=== PATIENT | male | born 1950 | race African-American/Black ===

== ENCOUNTER 2018-06-14 12:48 | Inpatient (IN) | payer MEDICARE, OTHER, SELFPAY ==
[2018-06-14 13:47] LABS: #Eosinphils 0.2 thou/uL (0.0-0.7); #Monocytes 0.8 thou/uL (0.11-0.59); #Neutrophils 7.4 thou/uL (1.40-6.50); %Basophils 0.2 % (0.0-1.0); %Eosinophils 2.2 % (0.0-10.0); %Lymphocytes 18.9 % (21.0-51.0); %Monocytes 7.3 % (0.0-10.0); %Neutrophils 71.4 % (42.0-75.0); Hemoglobin 14.7 g/dL (14.0-18.0); Mean Corpuscular HGB CONC 33.2 g/dL (32.0-36.0); Mean Corpuscular Hemoglobin 29.1 pg (27.0-31.0); Mean Corpuscular Volume 87.8 fL (78.0-98.0); Mean Platelet Volume 6.8 fL (7.4-10.4); Platelet Count 262 thou/uL (130-400); RBC Distribution Width 12.2 % (11.5-14.5); Red Blood Cell (RBC) Count 5.05 mill/uL (4.70-6.10); White Blood Cell (WBC) Count 10.4 thou/uL (4.8-10.8)
[2018-06-14 14:50] VITALS: BMI 32.1
[2018-06-14] MEDS ORDERED: Dextrose 50% Abboject 50 ML SYRINGE SLOW IVP PRN (14:59)
[2018-06-14] MEDS ORDERED: Guaifenesin DM 100-10/5 ML UDCUP PO PRN (14:59)
[2018-06-14] MEDS ORDERED: Acetaminophen 325 MG TAB PO PRN (14:59)
[2018-06-14] MEDS ORDERED: Dextrose 5% in Water 1,000 ML IV PRN (14:59)
[2018-06-14] MEDS ORDERED: HumaLOG 300 UNITS/3 ML VIAL SC PRN ×2 (14:59)
[2018-06-14] MEDS: glipiZIDE 5 MG TAB PO SCH (15:41)
[2018-06-14] MEDS: Sodium Chloride 0.9% 1,000 ML IV SCH (15:55)
[2018-06-14 16:00] LABS: Hemoglobin 15.1 g/dL (14.0-18.0)
[2018-06-14] MEDS: metFORMIN 850 MG TAB PO SCH (17:46)
--- NOTE | 2018-06-14 20:07 | HP ---
REASON FOR ADMISSION: GI bleed. HISTORY OF PRESENTING ILLNESS: The patient gives history of having 2 episodes of bright red blood pe r rectum this morning. He also had an episode of diarrhea, loose watery stool yesterday evening. He has been having cramping and bloating sensation from yesterday. The patient also mentions that he h as had colonoscopy done 3 weeks ago and had nearly 10 polyps removed of which three were big. His hi stopathology has come back negative for cancer. This was done by Dr. Amanda Zelaya. He has had a st ress test done 2 years back which was negative as far as he knows. He also mentions that from last 2 weeks, his diabetes has been uncontrolled with sugars running up to 270s at home. Currently, he has no complaints of chest pain, palpitation, PND or orthopnea. PAST MEDICAL HISTORY AND PAST SURGICAL HISTORY: Diabetes mellitus type 2, prior history of diverticu litis 15 years ago, dyslipidemia, prostate cancer with prior prostatectomy, recent colonoscopy done 3 weeks back with hyperplastic polyps on histopathology, right forearm surgery, hypertension. CURRENT MEDICATIONS: Patient takes metformin 500 mg p.o. 2 times daily, Trulicity which was recently started by his primary care physician and has taken one dose of it last week, aspirin 325 mg p.o. da dhruv, Zocor 40 mg p.o. daily, vitamin D 3000 units p.o. daily, lisinopril 40 mg p.o. daily. ALLERGIES: No known drug allergies. PERSONAL HISTORY: Does not abuse alcohol or drugs. No history of smoking. FAMILY HISTORY: Mother in her 70s. She has had history of end-stage renal disease, coronary ar brooke disease, and diabetes. Father of COPD and its complications and was a heavy smoker. He di ed at the age of 78 years. CODE STATUS: FULL. Power of real estate attorney is his . REVIEW OF SYSTEMS: The following complete review of systems was negative, unless otherwise mentioned in the HPI or below: Constitutional: Weight loss or gain, ability to conduct usual activities. Skin: Rash, itching. Eyes: Double vision, pain. ENT/Mouth: Nose bleeding, neck stiffness, pain, tenderness. Cardiovascular: Palpitations, dyspnea on exertion, orthopnea. Respiratory: Shortness of breath, wheezing, cough, hemoptysis, fever or night sweats. Gastrointestinal: Poor appetite, abdominal pain, heartburn, nausea, vomiting, constipation, or diarr hea. Genitourinary: Urgency, frequency, dysuria, nocturia. Musculoskeletal: Pain, swelling. Neurologic/Psychiatric: Anxiety, depression. Allergy/Immunologic: Skin rash, bleeding tendency. PHYSICAL EXAMINATION: GENERAL: The patient is a 68-year-old male who is currently not in any acute distress. VITAL SIGNS: Blood pressure 140/86, pulse 90 per minute, respiratory rate 16 per minute, temperature 98.1 degrees Fahrenheit and saturating 96% on room air. NECK: Supple, no elevated JVD. EYES: Extraocular muscles intact. Pupils reacting to light. ORAL CAVITY: Mucous membranes are moist. No exudates or congestion. CARDIOVASCULAR SYSTEM: S1, S2 heard. Regular rhythm. RESPIRATORY SYSTEM: Air entry 1+ bilaterally. No rales or rhonchi. ABDOMEN: Soft, bowel sounds heard. No tenderness, rigidity or guarding. EXTREMITIES: No peripheral edema or calf tenderness. VASCULAR SYSTEM: Peripheral pulses 1+ bilateral, no ischemic ulcerations or gangrene. CENTRAL NERVOUS SYSTEM: No gross focal deficits noted. Patient is alert, awake, oriented well. PSYCHIATRIC SYSTEM: The patient's mood is euthymic. No hallucinations or delusions. LABORATORY DATA AND IMAGING DATA: Hemoglobin and hematocrit 15 and 47, platelet count is 296, white count of 11, MCV is 86 with 74% neutrophils. Please note all his labs were done at [facility] in [place], [place]. Potassium was 5.1, bicarbonate 27, BUN 10, creatinine 0.8, serum glucos e 173 and albumin 4.6. LFTs were within normal limits. Lactic acid 2.5. PT/INR 11 and 1.0, PTT 34. CT of the abdomen done showed moderate wall thickening of the left colon starting at splenic flexur e to mid descending colon, suspected for ischemic colitis. There was also moderate diverticulosis se en of descending and sigmoid colon. EKG done showed normal sinus rhythm at 96 beats per minute. CLINICAL IMPRESSION AND PLAN: The patient will be admitted to medical floor for acute colitis with G I bleed. He has had recent colonoscopy done 3 weeks back. His histopathology has not shown any delmi gnancy. Patient likely might have ischemic colitis given the area of distribution of colitis on the CAT scan. He will be gently hydrated with normal saline at 70 mL per hour. The patient's diabetes h as been uncontrolled and likely might be dehydrated from the same as well. We will add glipizide to increased dose of metformin. He will also be on lisinopril 10 mg twice daily and Protonix 40 mg IV q .12 hours. We will consult Dr. Felix was regional guide for Gastroenterology. We will keep him n.p.o. until the second set of hemoglobin and hematocrit remained stable after that. He will be on clear li quid diet.
[2018-06-14] MEDS: Lisinopril 10 MG TAB PO SCH (20:52)
[2018-06-14] MEDS: Pantoprazole 40 MG VIAL IVP SCH (20:54)
[2018-06-14 21:40] LABS: Hemoglobin 14.2 g/dL (14.0-18.0)
[2018-06-15 04:31] LABS: ALT (SGPT) 11 U/L (8-55); AST (SGOT) 10 U/L (5-34); Albumin 3.8 g/dL (3.4-4.8); Alkaline Phosphatase 65 U/L (40-150); Anion Gap 12 mmol/L (10-20); BUN (Urea Nitrogen) 11 mg/dL (8.4-25.7); Bilirubin, Total 0.6 mg/dL (0.2-1.2); Calc. Creatinine Clearance 118 mL/min (70-130); Calcium 8.5 mg/dL (7.8-10.44); Carbon Dioxide 24 mmol/L (23-31); Chloride 104 mmol/L (98-107); Estimated GFR-MDRD Greater than 90; Globulin 2.3 g/dL (2.4-3.5); Glucose 139 mg/dL (80-115); Potassium 4.1 mmol/L (3.5-5.1); Protein, Total 6.1 g/dL (5.8-8.1); Sodium 136 mmol/L (136-145)
[2018-06-15] MEDS: Sodium Chloride 0.9% 1,000 ML IV SCH ×2 (04:59→21:13)
[2018-06-15] MEDS: Lisinopril 10 MG TAB PO SCH ×2 (08:39→20:55)
[2018-06-15] MEDS: Pantoprazole 40 MG VIAL IVP SCH ×2 (08:39→20:55)
[2018-06-15] MEDS: metFORMIN 850 MG TAB PO SCH (08:40)
[2018-06-15] MEDS: glipiZIDE 5 MG TAB PO SCH (08:40)
--- NOTE | 2018-06-15 12:12 | PDOC.PN ---
- Subjective Encounter Start Date: 06/15/18 Encounter Start Time: 11:00 Subjective: c/o luq pain, no nausea - Objective Resuscitation Status: Resuscitation Status FULL:Full Resuscitation MAR Reviewed: Yes Vital Signs & Weight: Vital Signs (12 hours) Temp Pulse Resp BP BP Pulse Ox 06/15/18 11:38 97.3 F L 90 18 115/74 95 06/15/18 08:39 117/70 06/15/18 08:00 97.4 F L 89 18 110/73 94 L 06/15/18 04:28 99.1 F 97 18 117/70 95 Weight Weight 204 lb 14.4 oz I&O: 06/14/18 06/15/18 06/16/18 06:59 06:59 06:59 Intake Total 1290 Output Total 850 300 Balance 440 -300 Result Diagrams: 06/15/18 03:45 06/15/18 03:45 Additional Labs: Accuchecks 06/15/18 06/14/18 06/14/18 04:43 19:39 16:43 POC Glucose 128 H 122 H 129 H Phys Exam - Physical Examination HEENT: PERRLA, moist MMs Neck: no JVD, supple Respiratory: no wheezing, no rales Cardiovascular: RRR, no significant murmur Gastrointestinal: soft, positive bowel sounds left UQ tenderness, no rigidity or guarding Musculoskeletal: no edema, pulses present Neurological: non-focal, moves all 4 limbs Psychiatric: normal affect, A&O x 3 Dx/Plan (1) Ischemic colitis Code(s): K55.9 - VASCULAR DISORDER OF INTESTINE, UNSPECIFIED Status: Acute (2) GI bleed Code(s): K92.2 - GASTROINTESTINAL HEMORRHAGE, UNSPECIFIED Status: Acute (3) DM type 2 (diabetes mellitus, type 2) Status: Chronic Qualifiers: Diabetes mellitus fci insulin use: with termination clerk use Diabetes mellitus complication status: with unspecified complications Qualified Code(s) : E11.8 - Type 2 diabetes mellitus with unspecified complications; Z79.4 - nursing home (current) use of insulin (4) HTN (hypertension) Code(s): I10 - ESSENTIAL (PRIMARY) HYPERTENSION Status: Chronic Qualifiers: Hypertension type: essential hypertension Qualified Code(s): I10 - Essential (primary) hypertension (5) Dyslipidemia Code(s): E78.5 - HYPERLIPIDEMIA, UNSPECIFIED Status: Chronic - Plan no further gi bleed -: h/h is stable -: npo except meds -: gi consult, iv hydration -: hold glipizide and metformin * . Review of Systems - Medications/Allergies Allergies/Adverse Reactions: Allergies Allergy/AdvReac Type Severity Reaction Status Date / Time No Known Allergies Allergy Unverified 06/14/18 14:50 Medications: Current Medications Acetaminophen (Tylenol) 650 mg PO Q4H PRN PRN Reason: Headache/Fever/Mild Pain (1-3) Dextrose/Water (Dextrose 50%) 25 gm SLOW IVP PRN PRN PRN Reason: Hypoglycemia Glipizide (Glucotrol) 5 mg PO BID-[facility] Last Admin: 06/15/18 08:40 Dose: Not Given Glucagon (Glucagon) 1 mg IM PRN PRN PRN Reason: Hypoglycemia Guaifenesin/Dextromethorphan (Robitussin Dm) 15 ml PO Q4H PRN PRN Reason: Cough Dextrose/Water (D5w) 1,000 mls @ 0 mls/hr IV .Q0M PRN PRN Reason: Hypoglycemia Sodium Chloride (Normal Saline 0.9%) 1,000 mls @ 70 mls/hr IV .[id number] [facility] Last Admin: 06/15/18 04:59 Dose: 1,000 mls Insulin Human Lispro (Humalog) 0 units SC .AGGRESSIVE SLIDING PRN PRN Reason: Aggressive Correctional Scale Insulin Human Lispro (Humalog) 0 units SC .BEDTIME SLIDING SC PRN PRN Reason: Bedtime Correctional Scale Lisinopril (Zestril) 10 mg PO BID [facility] Last Admin: 06/15/18 08:39 Dose: 10 mg Metformin HCl (Glucophage) 850 mg PO BID-[facility] Last Admin: 06/15/18 08:40 Dose: Not Given Pantoprazole Sodium (Protonix) 40 mg IVP Q12HR [facility] Last Admin: 06/15/18 08:39 Dose: 40 mg
[2018-06-15] MEDS: metroNIDAZOLE 500 MG in Premix Bag 1 BAG IVPB SCH ×2 (14:48→21:00)
--- NOTE | 2018-06-15 17:33 | PRG ---
DATE OF SERVICE: 06/15/2018 HISTORY OF PRESENT ILLNESS: This is a 68-year-old male with abdominal cramping, diarrhea, and hematochezia. The patient had a colonoscopy 3 weeks ago and had multiple falls . He had a CAT scan, which revealed thickening of left colon indicative colitis. The possibility that could be infectious versus ischemic colitis. The patient continues to have abdominal cramping pain over the l eft lower quadrant. There is no nausea or vomiting. He also passing small amount of blood was mostl y seen on the tissue paper. Although he has had bleeding, his blood count has been pretty stable sin ce admission. PHYSICAL EXAMINATION: GENERAL: Appears comfortable. VITAL SIGNS: Pulse is 90, temperature 97.3 degree Fahrenheit, blood pressure 150/74. CARDIOVASCULAR: First and second heart sounds normal. LUNGS: Clear to auscultation. ABDOMEN: Soft. Abdomen is tender over the left lower quadrant as before. There is no rebound or gu arding. His Bowel sounds active. LABORATORY DATA: From today showed no further drop in blood count. Admitting CBC: Hemoglobin at 14 .7, today is 14, hematocrit 44.4, today 41.5. His Chem-7 is actually normal BUN is 11. LFTs are nor mal. Globulin 2.3. CLINICAL IMPRESSION: Acute colitis, most likely infectious versus ischemic. He has had a colonoscopy less than 3 weeks ag o management. I would recommend the followin. Empiric antibiotic therapy with IV Flagyl and Cipro. 2. Clear liquid diet. 3. Follow H and H.
[2018-06-16] MEDS: metroNIDAZOLE 500 MG in Premix Bag 1 BAG IVPB SCH ×3 (05:43→22:34)
[2018-06-16] MEDS ORDERED: metroNIDAZOLE 500 MG/100 ML BAG ONE (05:47)
[2018-06-16 08:30] LABS: #Eosinphils 0.2 thou/uL (0.0-0.7); #Lymphocytes 1.6 thou/uL (1.20-3.40); #Monocytes 0.6 thou/uL (0.11-0.59); #Neutrophils 5.2 thou/uL (1.40-6.50); %Basophils 0.3 % (0.0-1.0); %Eosinophils 3.2 % (0.0-10.0); %Lymphocytes 21.3 % (21.0-51.0); %Monocytes 7.8 % (0.0-10.0); %Neutrophils 67.4 % (42.0-75.0); Hemoglobin 14.5 g/dL (14.0-18.0); Mean Corpuscular Hemoglobin 28.9 pg (27.0-31.0); Mean Corpuscular Volume 87.5 fL (78.0-98.0); Mean Platelet Volume 6.7 fL (7.4-10.4); Platelet Count 257 thou/uL (130-400); RBC Distribution Width 12.1 % (11.5-14.5); Red Blood Cell (RBC) Count 5.03 mill/uL (4.70-6.10); White Blood Cell (WBC) Count 7.7 thou/uL (4.8-10.8)
[2018-06-16] MEDS: Lisinopril 10 MG TAB PO SCH ×2 (08:32→20:16)
[2018-06-16] MEDS: Pantoprazole 40 MG VIAL IVP SCH ×2 (08:33→20:17)
[2018-06-16 08:52] LABS: Anion Gap 14 mmol/L (10-20); BUN (Urea Nitrogen) 9 mg/dL (8.4-25.7); Calc. Creatinine Clearance 121 mL/min (70-130); Calcium 9.1 mg/dL (7.8-10.44); Carbon Dioxide 22 mmol/L (23-31); Chloride 104 mmol/L (98-107); Estimated GFR-MDRD Greater than 90; Glucose 111 mg/dL (80-115); Potassium 4.1 mmol/L (3.5-5.1); Sodium 136 mmol/L (136-145)
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
--- NOTE | 2018-06-16 13:07 | PDOC.PN ---
- Subjective Encounter Start Date: 06/16/18 Encounter Start Time: 10:40 Subjective: abd colic is gone now -: no nausea, is tolerating liq diet - Objective Resuscitation Status: Resuscitation Status FULL:Full Resuscitation MAR Reviewed: Yes Vital Signs & Weight: Vital Signs (12 hours) Temp Pulse Resp BP BP Pulse Ox 06/16/18 08:38 97.7 F 74 18 119/74 97 06/16/18 08:32 119/74 Weight Weight 204 lb 14.4 oz I&O: 06/15/18 06/16/18 06/17/18 06:59 06:59 06:59 Intake Total 1290 1800 Output Total 850 850 Balance 440 950 Result Diagrams: 06/16/18 08:23 06/16/18 08:23 Additional Labs: Accuchecks 06/16/18 06/16/18 06/15/18 11:55 05:17 19:59 POC Glucose 99 132 H 114 H 06/15/18 17:18 POC Glucose 190 H Phys Exam - Physical Examination HEENT: PERRLA, moist MMs Neck: no JVD, supple Respiratory: no wheezing, no rales Cardiovascular: RRR, no significant murmur Gastrointestinal: soft, non-tender, no distention, positive bowel sounds Musculoskeletal: no edema, pulses present Neurological: non-focal, moves all 4 limbs Psychiatric: normal affect, A&O x 3 Dx/Plan (1) Ischemic colitis Code(s): K55.9 - VASCULAR DISORDER OF INTESTINE, UNSPECIFIED Status: Acute (2) GI bleed Code(s): K92.2 - GASTROINTESTINAL HEMORRHAGE, UNSPECIFIED Status: Acute (3) DM type 2 (diabetes mellitus, type 2) Status: Chronic Qualifiers: Diabetes mellitus snf insulin use: with snf use Diabetes mellitus complication status: with unspecified complications Qualified Code(s) : E11.8 - Type 2 diabetes mellitus with unspecified complications; Z79.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 Review of Systems - Medications/Allergies Allergies/Adverse Reactions: Allergies Allergy/AdvReac Type Severity Reaction Status Date / Time No Known Allergies Allergy Unverified 06/14/18 14:50 Medications: Current Medications Acetaminophen (Tylenol) 650 mg PO Q4H PRN PRN Reason: Headache/Fever/Mild Pain (1-3) Dextrose/Water (Dextrose 50%) 25 gm SLOW IVP PRN PRN PRN Reason: Hypoglycemia Glucagon (Glucagon) 1 mg IM PRN PRN PRN Reason: Hypoglycemia Guaifenesin/Dextromethorphan (Robitussin Dm) 15 ml PO Q4H PRN PRN Reason: Cough Dextrose/Water (D5w) 1,000 mls @ 0 mls/hr IV .Q0M PRN PRN Reason: Hypoglycemia Sodium Chloride (Normal Saline 0.9%) 1,000 mls @ 70 mls/hr IV .[id number] [facility] Last Admin: 06/15/18 21:13 Dose: 1,000 mls Ciprofloxacin/Dextrose 400 mg/ (Device) 200 mls @ 200 mls/hr IVPB 0300,1500 [facility] Last Admin: 06/16/18 03:42 Dose: 200 mls Metronidazole 500 mg/ Device 100 mls @ 100 mls/hr IVPB Q8HR [facility] Last Admin: 06/16/18 05:43 Dose: 100 mls Insulin Human Lispro (Humalog) 0 units SC .AGGRESSIVE SLIDING PRN PRN Reason: Aggressive Correctional Scale Insulin Human Lispro (Humalog) 0 units SC .BEDTIME SLIDING SC PRN PRN Reason: Bedtime Correctional Scale Lisinopril (Zestril) 10 mg PO BID [facility] Last Admin: 06/16/18 08:32 Dose: 10 mg Pantoprazole Sodium (Protonix) 40 mg IVP Q12HR [facility] Last Admin: 06/16/18 08:33 Dose: 40 mg
[2018-06-16] MEDS: Sodium Chloride 0.9% 1,000 ML IV SCH (13:47)
--- NOTE | 2018-06-16 20:46 | PRG ---
DATE OF SERVICE: 06/16/2018 HISTORY OF PRESENT ILLNESS: Mr. Natarajan states he is feeling better. He has left lower quadrant pain _ ____ no bowel movements. He is tolerating clear liquids, going to advance it to full liquids Lookin g back he has noted any overt exposures or recent antibiotic use that may be contributing to diarrhea that started on Saturday night before he came in. He has not had any bouts like this in the past. PAST MEDICAL HISTORY: . MEDICATIONS: Cipro, Flagyl, IV fluids, Protonix. PHYSICAL EXAMINATION: VITAL SIGNS: Temperature 98.7, pulse 84, blood pressure 119/74. LUNGS: Clear. HEART: Regular rate and rhythm. ABDOMEN: Soft. There is very mild tenderness in left lower quadrant with no rebound, no guarding. LABORATORY STUDIES: White count 7.7, hemoglobin 14.5, platelet count 275. Electrolytes within sera l limits. BUN and creatinine are 9 and 0.79. Microbiology, none performed. ASSESSMENT: Acute colitis, likely ischemic, based on CT scan findings with thickening of the splenic flexure outside hospital, now improved. No leukocytosis or fever. RECOMMENDATIONS: Advance to full liquid diet, then low residual diet. He can be switched to oral an tibiotics. If he continues to improve tomorrow, he can go home with 7 days total of antibiotics.
[2018-06-17] MEDS: Sodium Chloride 0.9% 1,000 ML IV SCH (02:50)
[2018-06-17 05:00] LABS: #Eosinphils 0.3 thou/uL (0.0-0.7); #Lymphocytes 1.3 thou/uL (1.20-3.40); #Monocytes 0.6 thou/uL (0.11-0.59); #Neutrophils 4.7 thou/uL (1.40-6.50); %Basophils 0.2 % (0.0-1.0); %Eosinophils 4.6 % (0.0-10.0); %Lymphocytes 18.8 % (21.0-51.0); %Neutrophils 68.4 % (42.0-75.0); Hemoglobin 13.9 g/dL (14.0-18.0); Mean Corpuscular HGB CONC 32.2 g/dL (32.0-36.0); Mean Corpuscular Hemoglobin 28.3 pg (27.0-31.0); Mean Corpuscular Volume 87.8 fL (78.0-98.0); Mean Platelet Volume 6.7 fL (7.4-10.4); Platelet Count 257 thou/uL (130-400); RBC Distribution Width 11.9 % (11.5-14.5); White Blood Cell (WBC) Count 6.9 thou/uL (4.8-10.8)
[2018-06-17 05:08] LABS: Anion Gap 13 mmol/L (10-20); BUN (Urea Nitrogen) 10 mg/dL (8.4-25.7); Calc. Creatinine Clearance 119 mL/min (70-130); Calcium 8.9 mg/dL (7.8-10.44); Carbon Dioxide 23 mmol/L (23-31); Chloride 105 mmol/L (98-107); Estimated GFR-MDRD Greater than 90; Glucose 133 mg/dL (80-115); Potassium 4.1 mmol/L (3.5-5.1); Sodium 137 mmol/L (136-145)
[2018-06-17] MEDS: metroNIDAZOLE 500 MG in Premix Bag 1 BAG IVPB SCH (05:54)
[2018-06-17] MEDS: Pantoprazole 40 MG VIAL IVP SCH (08:09)
[2018-06-17] MEDS: Lisinopril 10 MG TAB PO SCH (08:09)
--- NOTE | 2018-06-17 11:57 | PDOC.PN ---
- Subjective Encounter Start Date: 06/17/18 Encounter Start Time: 08:40 Subjective: no abd pain or nausea -: tolerating full liq diet - Objective Resuscitation Status: Resuscitation Status FULL:Full Resuscitation MAR Reviewed: Yes Vital Signs & Weight: Vital Signs (12 hours) Temp Pulse Resp BP BP Pulse Ox 06/17/18 11:00 98.0 F 78 18 102/64 94 L 06/17/18 08:09 108/66 06/17/18 08:07 108/66 06/17/18 08:05 95 06/17/18 07:58 97.3 F L 87 16 96/57 L 95 Weight Weight 204 lb 14.4 oz I&O: 06/16/18 06/17/18 06/18/18 06:59 06:59 06:59 Intake Total 1800 Output Total 850 Balance 950 Result Diagrams: 06/17/18 04:24 06/17/18 04:24 Additional Labs: Accuchecks 06/17/18 06/16/18 06/16/18 06:17 21:38 16:06 POC Glucose 143 H 112 H 159 H 06/16/18 11:55 POC Glucose 99 Phys Exam - Physical Examination HEENT: PERRLA, moist MMs Neck: no JVD, supple Respiratory: no wheezing, no rales Cardiovascular: RRR, no significant murmur Gastrointestinal: soft, non-tender, no distention, positive bowel sounds Musculoskeletal: no edema, pulses present Neurological: non-focal, moves all 4 limbs Psychiatric: normal affect, A&O x 3 Dx/Plan (1) Ischemic colitis Code(s): K55.9 - VASCULAR DISORDER OF INTESTINE, UNSPECIFIED Status: Acute (2) GI bleed Code(s): K92.2 - GASTROINTESTINAL HEMORRHAGE, UNSPECIFIED Status: Resolved Qualifiers: GI bleed type/associated pathology: unspecified gastrointestinal hemorrhage type Qualified Code(s): K92.2 - Gastrointestinal hemorrhage, unspecified (3) DM type 2 (diabetes mellitus, type 2) Status: Chronic Qualifiers: Diabetes mellitus dust sampler insulin use: with retirement use Diabetes mellitus complication status: with unspecified complications Qualified Code(s) : E11.8 - Type 2 diabetes mellitus with unspecified complications; 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
[2018-06-17 14:00] VITALS: BP 129/79; TEMP 97.9
--- NOTE | 2018-06-17 17:29 | PRG ---
DATE OF SERVICE: 06/17/2018 SUBJECTIVE: The patient is without complaints. States she is having much less left lower quad rant pain. He is tolerating regular diet. OBJECTIVE: VITAL SIGNS: Temperature is 97.9, pulse 83, blood pressure 129/79. GENERAL: is by the bedside. He is in no distress. LUNGS: Clear. HEART: Regular rate and rhythm. ABDOMEN: Nontender. LABORATORY STUDIES: White count is 6.9, hemoglobin 13.9, platelet count is 257. Sodium 137, potassi um 4.1, BUN and creatinine are 10 and 0.8. ASSESSMENT: Mr. Natarajan is a 68-year-old who had left lower quadrant abdominal pain with hematochezia a nd diarrhea. This is likely ischemic colitis. He seems to be improving. RECOMMENDATIONS: 1. Finish 7 days of Levaquin and Flagyl. 2. [place] low fiber diet. 3. Followup in the office in 1-[address] Zelaya, one of our physician assistants to make sure he continues to improve. At this time, I do not think he will need a repeat colonoscopy. He just gupta d one 3 weeks ago .
--- NOTE | 2018-06-17 19:55 | DIS ---
DATE OF ADMISSION: 06/14/2018 DATE OF DISCHARGE: 06/17/2018 DISCHARGE DISPOSITION: To home. PRIMARY DISCHARGE DIAGNOSIS: Ischemic colitis/gastroenteritis resolving. SECONDARY DISCHARGE DIAGNOSES: Gastrointestinal bleed resolved, diabetes mellitus type 2, hypertensi on, dyslipidemia. PROCEDURES DONE DURING HOSPITALIZATION: Serial hemoglobin and hematocrit 14 and 43. INPATIENT CONSULTS: Dr. Felix/Dr. Pedro for Gastroenterology. DISCHARGE MEDICATIONS: Ciprofloxacin 500 mg p.o. twice daily for 7 days, metronidazole 500 mg p.o. 3 times daily for 7 days, simvastatin 40 mg p.o. at bedtime, metformin 500 mg p.o. q.a.m., lisinopril 40 mg p.o. daily, Trulicity 0.75 mg once weekly. ALLERGIES: No known drug allergies. DISCHARGE PLAN: Patient to follow up with Dr. Amanda Zelaya in 3 weeks. BRIEF COURSE DURING HOSPITALIZATION: Patient initially got admitted on with complaints of bleed ing per rectum x2. He had a colonoscopy done [address] Zelaya with removal of nearly [address] scan done showed moderate wall thickening of the left colon starting at the splenic flexure to mid descending colon suspicious for ischemic colitis. Please note, this was done at [facility] in [place], [place]. He was evaluated by Dr. Felix and Dr. Pedro during his stay here. The patient initially was fluid resuscitated, but still had left upper quadrant and lowe r quadrant abdominal pain. He was later placed on Cipro and Flagyl and has responded well since then . The patient has tolerated full liquid diet and will be on a bland diet this afternoon. If he tole rates bland diet, he will be discharged home. He needs follow up with Dr. Amanda Zelaya in 3 weeks. He needs to take antibiotics for another 7 days. He is hemodynamically stable and is cleared by Dr. Pedro for discharge. Please see a [id number] documentation on for the day of discharge on [facility].
== END 2018-06-17 14:23 | disposition home or self-care (01) | DRG 394 ==
LOC: ERS 12:48 → T4-B 13:30
PROVIDERS: ADMIT Internal Medicine; ATTEND Internal Medicine
DX: K55.039 Acute (reversible) ischemia of large intestine, extent unspecified (principal); K92.1 Melena; E11.9 Type 2 diabetes mellitus without complications; Z79.4 Long term (current) use of insulin; I10 Essential (primary) hypertension; E78.5 Hyperlipidemia, unspecified; Z85.46 Personal history of malignant neoplasm of prostate; K52.9 Noninfective gastroenteritis and colitis, unspecified; G89.29 Other chronic pain; Z86.73 Personal history of transient ischemic attack (TIA), and cerebral infarction without residual deficits
CPT/HCPCS: 36415; 36416; 80048; 80053; 85014; 85018; 85025; 93005; C9113; J0744